=== PATIENT | female | born 1960 | race American Indian/Alaskan Native ===

== ENCOUNTER 2018-06-29 19:04 | Emergency (ER) | payer BC, MEDICARE ==
[2018-06-29 19:10] VITALS: BMI 32.5
[2018-06-29 19:15] VITALS: BP 128/80; PULSE 79; RESP 18; TEMP 98.6; O2SAT 97
[2018-06-29] MEDS ORDERED: Sodium Chloride 0.9% 1,000 ML IV STA (19:28)
--- NOTE | 2018-06-29 19:45 | ED PDOC ---
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 Patient notes she went to a seafood place in [place], [place] and had lobster and shrimp. When patient came home she developed a raspy voice, itchy rash, and swollen lower lip. Patient states she was never allergic to seafood before. Patient denies any fever, chills, chest pain, shortness of breath, nausea, vomiting, diarrhea, back pain, neck pain, headache, dizziness, or any other complaints. Of note, patient is currently follow up with Dr. Bonifacio HOLT for allergy testing. (Melissa Wallace PA-C) Past Medical History - Provider Review Nursing Documentation Reviewed: Yes - Infectious Disease Hx of Infectious Diseases: None - Cardiac Hx Cardiac Disorders: No - Pulmonary Hx Respiratory Disorders: Yes Hx Asthma: Yes - Neurological Hx Neurological Disorder: Yes Hx Headaches: Yes Other/Comment: chronic headaches. Stated by pt its worse then migraines. pt recieving botox injections every 3 months for headaches and it's been improving. - HEENT Hx HEENT Disorder: No - Renal Hx Renal Disorder: No - Endocrine/Metabolic Hx Endocrine Disorders: No - Hematological/Oncological Hx Blood Disorders: No - Integumentary Hx Dermatological Disorder: No - Musculoskeletal/Rheumatological Hx Musculoskeletal Disorders: No - Gastrointestinal Hx Gastrointestinal Disorders: No - Genitourinary/Gynecological Hx Genitourinary Disorders: No - Psychiatric Hx Psychophysiologic Disorder: No Hx Substance Use: No - Surgical History Hx Gastric Bypass Surgery: Yes (may 2013) - Anesthesia Hx Anesthesia: No <Melissa Wallace PA-C - Last Filed: 06/29/18 21:51> Family/Social History - Physician Review Nursing Documentation Reviewed: Yes Family/Social History: Unknown Family HX Smoking Status: Never Smoked Hx Alcohol Use: No Hx Substance Use: No <Melissa Wallace PA-C - Last Filed: 06/29/18 21:51> Allergies/Home Meds <AleaLeonard - Last Filed: 06/29/18 19:55> <Melissa Wallace PA-C - Last Filed: 06/29/18 21:51> Allergies/Adverse Reactions: Allergies codeine Allergy (Verified 06/29/18 19:11) RASH diphenhydramine [From Benadryl] Allergy (Verified 06/29/18 19:11) RASH ibuprofen Allergy (Verified 06/29/18 19:11) RASH Home Medications: Home Meds Medication Instructions Recorded Confirmed Baclofen [Lioresal] 10 mg PO DAILY 06/29/18 06/29/18 Topiramate [Topamax] 100 mg PO DAILY 06/29/18 06/29/18 Review of Systems - Physician Review All systems were reviewed & negative as marked: Yes - Review of Systems Constitutional: Normal Eyes: Normal ENT: Voice Changes (raspy voice), Other (swollen lower lip) Respiratory: Normal. absent: SOB, Cough Cardiovascular: Normal. absent: Chest Pain Gastrointestinal: Normal. absent: Abdominal Pain, Diarrhea, Nausea, Vomiting Genitourinary Female: Normal. absent: Dysuria, Frequency Musculoskeletal: Normal. absent: Back Pain, Neck Pain Skin: Rash Neurological: Normal. absent: Headache Endocrine: Normal Hemo/Lymphatic: Normal Psychiatric: Normal <Melissa Wallace PA-C - Last Filed: 06/29/18 21:51> Physical Exam Vital Signs Reviewed: Yes Temperature: Afebrile Blood Pressure: Normal Pulse: Regular Respiratory Rate: Normal Appearance: Positive for: Well-Appearing, Non-Toxic, Comfortable Pain Distress: None Mental Status: Positive for: Alert and Oriented X 3 - Systems Exam Head: Present: Atraumatic, Normocephalic Pupils: Present: PERRL Extroacular Muscles: Present: EOMI Conjunctiva: Present: Normal Mouth: Present: Moist Mucous Membranes, Other (mild edema to uvula). No: Normal Lips (lower lip edema) Neck: Present: Normal Range of Motion Respiratory/Chest: Present: Clear to Auscultation, Good Air Exchange. No: Respiratory Distress, Accessory Muscle Use Cardiovascular: Present: Regular Rate and Rhythm, Normal S1, S2. No: Murmurs Abdomen: No: Tenderness, Distention, Peritoneal Signs Back: Present: Normal Inspection Upper Extremity: Present: Normal Inspection. No: Cyanosis, Edema Lower Extremity: Present: Normal Inspection. 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 Plan: -- Pepcid -- SOLU-Medrol -- Sodium Chloride -- Vistaril -- Reassess and disposition Progress Notes: 06/29/18 21:30 On re-evaluation, patient reports improvement of symptoms, states that she no longer has a raspy voice, and she noticed improvement of her rash, denies any SOB, throat swelling. On exam, patient remains AAOx3, in no acute distress. Lungs clear to auscultation, cardiac RRR. Based on history, exam and diagnostic results, plan will be for outpatient follow up. Patient instructed to follow-up with pmd in 1-2 days without fail. Advised to take medication as prescribed. Return to the emergency room at any time for any new or worsening symptoms. Patient states she fully agrees with and understands discharge instructions. States that she agrees with the plan and disposition. Verbalized and repeated discharge instructions and plan. I have given the patient opportunity to ask any additional questions. (Melissa Wallace PA-C) - Medication Orders Current Medication Orders: Discontinued Medications Famotidine (Pepcid) 20 mg IVP STAT STA Stop: 06/29/18 19:29 Last Admin: 06/29/18 19:36 Dose: 20 mg IVP Administration Document 06/29/18 19:36 JOL (Rec: 06/29/18 19:36 JOL [id number]) Charges for Administration # of IVP Administrations 1 Hydroxyzine Pamoate (Vistaril) 50 mg PO STAT STA PRN Reason: Protocol Stop: 06/29/18 19:35 Last Admin: 06/29/18 19:43 Dose: 50 mg Sodium Chloride (Sodium Chloride 0.9%) 1,000 mls @ 1,000 mls/hr IV .Q1H STA Stop: 06/29/18 20:27 Last Admin: 06/29/18 19:35 Dose: 1,000 mls/hr eMAR Start Stop Document 06/29/18 19:35 JOL (Rec: 06/29/18 19:35 JOL [id number]) Intravenous Solution Start Date 06/29/18 Start Time 19:35 End Date 06/29/18 End time 20:35 Total Infusion Time 60 Methylprednisolone (Solu-Medrol) 125 mg IVP ONCE ONE Stop: 06/29/18 19:29 Last Admin: 06/29/18 19:36 Dose: 125 mg IVP Administration Document 06/29/18 19:36 JOL (Rec: 06/29/18 19:36 JOL [id number]) Charges for Administration # of IVP Administrations 1 - PA / DIRECTOR MONEY / Resident Statement / has reviewed & agrees with the documentation as recorded. / has examined the patient and agrees with the treatment plan. <Leonard Csoby - Last Filed: 06/29/18 19:55> - Scribe Statement The provider has reviewed the documentation as recorded by the Scribe <Melissa Wallace PA-C - Last Filed: 06/29/18 21:51> - Scribe Statement Reyna Flores All medical record entries made by the Scribe were at my direction and personally dictated by me. I have reviewed the chart and agree that the record accurately reflects my personal performance of the history, physical exam, medical decision making, and the department course for this patient. I have also personally directed, reviewed, and agree with the discharge instructions and disposition. (Melissa Wallace PA-C) Disposition/Present on Arrival <AleaLeonard howell - Last Filed: 06/29/18 19:55> - Present on Arrival Any Indicators Present on Arrival: No History of DVT/PE: No History of Uncontrolled Diabetes: No Urinary Catheter: No History of Decub. Ulcer: No History Surgical Site Infection Following: None - Disposition Have Diagnosis and Disposition been Completed?: Yes Disposition Time: 21:45 Patient Plan: Discharge <Melissa Wallace PA-C - Last Filed: 06/29/18 21:51> - Disposition Diagnosis: Food allergy Disposition: HOME/ ROUTINE Condition: STABLE Discharge Instructions (ExitCare): Food Allergy Additional Instructions: Thank you for letting us take care of you today. You were treated for allergic reaction. The emergency medical care you received today was directed at your acute symptoms. If you were prescribed any medication, please fill it and take as directed. It may take several days for your symptoms to resolve. Return to the Emergency Department if your symptoms worsen, do not improve, or if you have any other problems. Please contact your doctor in 2 days for re-evaluation and follow up. Bring any paperwork you were given at discharge with you along with any medications you are taking to your follow up visit. Our treatment cannot replace ongoing medical care by a primary care provider (PCP) outside of the emergency department. Thank you for allowing the [facility] team to be part of your care today. Prescriptions: DiphenhydrAMINE [Benadryl] 25 mg PO TID #20 cap Famotidine [Pepcid] 40 mg PO DAILY #20 tablet Methylprednisolone [Medrol Dose Pack (21 tabs)] 4 mg PO DAILY #21 mg Referrals: Moe Bucio MD, PhD [Primary Care Provider] - Follow up with primary Forms: [employer] ([place]hi)
== END 2018-06-29 22:30 | disposition home or self-care (01) ==
LOC: ED 19:04
DX: L27.2 Dermatitis due to ingested food (principal)
CPT/HCPCS: 96361; 96374; 96375; 99284; J2930; J7030; Q0177